=== PATIENT | male | born 1935 | race Caucasian/White ===

== ENCOUNTER 2024-03-03 15:24 | Emergency (ER) | payer MEDICARE ==
[2024-03-03] MEDS: fentaNYL 50 MCG/ML SDV IVPUSH ONE ×2 (15:40→18:47)
[2024-03-03 18:14] LABS: BASOPHILS ABSOLUTE AUTO 0.13 K/uL (0.00-0.10); BASOPHILS PERCENT AUTO 0.7 % (0.1-1.3); EOSINOPHILS PERCENT AUTO 2.2 % (0.0-5.4); HEMATOCRIT 38.2 % (38.4-49.7); HEMOGLOBIN 13.2 g/dL (12.9-16.9); IMMATURE GRAN ABSOLUTE AUTO 0.12 K/uL (0.00-0.23); IMMATURE GRAN PERCENT AUTO 0.6 % (0.0-0.7); LYMPHOCYTES PERCENT AUTO 9.7 % (11.4-47.7); MEAN CORPUSCULAR HEMOGLOBIN 32.4 pg (31.6-35.5); MEAN CORPUSCULAR HGB CONC 34.6 g/dL (31.6-35.5); MEAN CORPUSCULAR VOLUME 93.6 fL (81.4-99.0); MONOCYTES PERCENT AUTO 6.5 % (3.3-12.6); NEUTROPHILS ABSOLUTE AUTO 14.95 K/uL (1.0-7.6); NEUTROPHILS PERCENT AUTO 80.3 % (40.0-78.1); PLATELET COUNT,PLT 267 K/uL (130-375); RED BLOOD CELL COUNT 4.08 M/uL (4.14-5.76); WHITE BLOOD CELL COUNT,WBC 18.6 K/uL (3.2-11.0)
[2024-03-03 18:23] LABS: A/G RATIO 1.2 (1.2-2.2); ALANINE AMINOTRANSFERASE,ALT 29 U/L (12-78); ALBUMIN 3.8 g/dL (3.4-5.0); ALKALINE PHOSPHATASE 100 U/L (46-116); ASPARTATE AMNIOTRANSFERASE,AST 25 U/L (15-37); BILIRUBIN TOTAL 0.4 mg/dL (0.2-1.0); BLOOD UREA NITROGEN,BUN 26 mg/dL (7-18); CALCIUM 9.5 mg/dL (8.5-10.1); CARBON DIOXIDE,CO2 26 mmol/L (21-32); CHLORIDE,CL 102 mmol/L (100-108); CREATININE 1.3 mg/dL (0.8-1.3); EST CRCL DRUG DOSING (CG) 36.81 mL/min; ESTIMATED GFR 54 mL/min (>60); GLUCOSE RANDOM 143 mg/dL (74-106); POTASSIUM,K 3.8 mmol/L (3.6-5.2); SODIUM,NA 138 mmol/L (140-148)
[2024-03-03 18:29] LABS: ANION GAP 13.8 mmol/L (5.0-14.0)
[2024-03-03] MEDS: Sodium Chloride 0.9% 80 ML IV SCH (18:41)
[2024-03-03] MEDS: Iopamidol 612 MG/ML 100 ML Bottle IV SCH (18:41)
[2024-03-03] MEDS: Sodium Chloride 0.9% 1,000 ML IV ONE (19:18)
== END 2024-03-03 19:59 ==
LOC: JP.ED 15:24
DX: S72.122A Displaced fracture of lesser trochanter of left femur, initial encounter for closed fracture (principal); Z91.040 Latex allergy status; Z79.899 Other long term (current) drug therapy; W19.XXXA Unspecified fall, initial encounter
CPT/HCPCS: 36415; 70450; 71045; 71260; 72125; 73501; 74177; 76377; 80053; 83690; 85025; 86850; 86900; 86901; 96361; 96374; 96376; 99283; 99285; J3010; J3490; J7030; Q9967

== ENCOUNTER 2024-05-01 08:20 | Day surgery (SDC) | payer MEDICARE ==
[2024-05-01] MEDS: Sodium Chloride 0.9% 10 ML Syringe FLUSH PRN (08:57)
== END 2024-05-01 09:37 | disposition home or self-care (01) ==
LOC: JP.SDS 08:20
PROVIDERS: ATTEND Ophthalmology
DX: H25.12 Age-related nuclear cataract, left eye (principal); I10 Essential (primary) hypertension
CPT/HCPCS: 66984; J3490; V2632; 00142-QZ

== ENCOUNTER 2024-05-22 06:26 | Day surgery (SDC) | payer MEDICARE ==
[2024-05-22] MEDS ORDERED: Sodium Chloride 0.9% 10 ML Syringe FLUSH ONE (07:00)
== END 2024-05-22 09:05 | disposition home or self-care (01) ==
LOC: JP.SDS 06:26
PROVIDERS: ATTEND Ophthalmology
DX: H25.11 Age-related nuclear cataract, right eye (principal); I10 Essential (primary) hypertension
CPT/HCPCS: 66984; V2632